=== PATIENT | female | born 2005 | race Caucasian/White ===

== ENCOUNTER 2025-01-28 02:30 | Emergency (ER) | payer SELFPAY | END 2025-01-28 03:08 | disposition home or self-care (01) | LOC: ERS 02:30 | DX: F10.129 Alcohol abuse with intoxication, unspecified (principal); R03.0 Elevated blood-pressure reading, without diagnosis of hypertension; F17.290 Nicotine dependence, other tobacco product, uncomplicated | CPT/HCPCS: 36416; 93005; 99284 ==